=== PATIENT | male | born 2000 | race Caucasian/White ===

== ENCOUNTER → 2019-01-24 | Outpatient (CLI) | payer OTHER ==
--- NOTE | 2019-01-26 12:10 | REP ---
Maxillofacial CT study without contrast: History: Nasal obstruction. No comparison study. CT findings: Mastoid aeration is normal and symmetric. No petrous bone abnormality is appreciated. All of the other paranasal sinuses are completely opacified with the exception of the maxillary sinuses. There is moderate mucosal thickening affecting the left maxillary sinus. There is only a small quantity of air in the right maxillary sinus. It is almost completely opacified. The bony nasal septum deviates somewhat to the left with a nasal septal beak. There is evidence of nasal polyp occluding the right nasal cavity particularly anteriorly. Nasal polyps are suspected in the left nasal cavity as well. The ostiomeatal complexes are obscured by mucosal thickening. No intraorbital abnormality is seen. Deep facial soft tissues are unremarkable. The visualized intracranial structures are unremarkable. Impression: Bilateral nasal polyps with occlusion of the nasal passages on the right. There is polysinusitis. Frontal, ethmoidal and sphenoidal sinuses are completely opacified. There is nearly complete opacification of the right maxillary sinus and moderate mucosal thickening of the left maxillary sinus. Electronically Signed by Juan Luis Catalan MD 01/26/2019 12:22 P
== END ==
LOC: M RAD 13:36
PROVIDERS: ATTEND Otolaryngology
DX: J32.0 Chronic maxillary sinusitis (principal); J32.2 Chronic ethmoidal sinusitis; J34.89 Other specified disorders of nose and nasal sinuses; J33.8 Other polyp of sinus

== ENCOUNTER → 2022-05-08 | Outpatient (REF) | payer OTHER ==
[2022-05-08 14:13] LABS: ALBUMIN 4.2 GM/DL (3.2-5.2); ALT/SGPT 43 U/L (12-78); BILIRUBIN,TOTAL 0.8 MG/DL (0.2-1.0); BLOOD UREA NITROGEN 17 MG/DL (7-18); CALCIUM LEVEL 9.3 MG/DL (8.5-10.1); CARBON DIOXIDE LEVEL 30 MEQ/L (21-32); CHLORIDE LEVEL 103 MEQ/L (98-107); CHOLESTEROL LEVEL 189 MG/DL (<200); CHOLESTEROL RISK RATIO 3.436 (<5); CREATININE FOR GFR 0.92 MG/DL (0.70-1.30); GLOMERULAR FILTRATION RATE > 60.0 (>60); GLUCOSE, FASTING 90 MG/DL (70-100); HDL CHOLESTEROL 55 MG/DL (>40); LDL CHOLESTEROL 120 MG/DL (<100); NON-HDL-C 134 MG/DL; POTASSIUM SERUM 4.1 MEQ/L (3.5-5.1); SODIUM LEVEL 137 MEQ/L (136-145); TRIGLYCERIDES LEVEL 69 MG/DL (<150)
[2022-05-08 15:17] LABS: HEMOGLOBIN A1c 5.2 %
== END ==
LOC: M LAB REF 12:12
PROVIDERS: ATTEND Family Medicine Addiction Medicine
DX: E66.9 Obesity, unspecified (principal); Z68.29 Body mass index [BMI] 29.0-29.9, adult